=== PATIENT | female | born 1970 | race Caucasian/White ===

== ENCOUNTER 2019-04-25 07:15 | Observation (INO) | payer OTHER ==
[2019-04-22 11:05] LABS: ABSOLUTE BASOPHILS # (AUTO) 0.1 10^3/uL (0.0-0.2); ABSOLUTE EOSINOPHILS # (AUTO) 0.6 10^3/uL (0.0-0.6); ABSOLUTE LYMPHOCYTES (AUTO) 2.5 10^3/uL (0.5-4.7); ABSOLUTE MONOCYTES (AUTO) 0.7 10^3/uL (0.1-1.4); ABSOLUTE NEUT (AUTO) 6.4 10^3/uL (1.7-8.2); BASOPHILS % (AUTO) 0.7 % (0-2); EOSINOPHILS % (AUTO) 5.5 % (0-6); HEMATOCRIT 40.2 % (36.0-47.0); HEMOGLOBIN 13.4 g/dL (12.0-15.5); LYMPHOCYTES % (AUTO) 24.2 % (13-45); MEAN CORPUSCULAR HEMOGLOBIN 29.4 pg (27.0-33.4); MEAN CORPUSCULAR HGB CONC 33.2 g/dL (32.0-36.0); MEAN CORPUSCULAR VOLUME 88 fl (80-97); MONOCYTES % (AUTO) 7.2 % (3-13); PLATELET COUNT 299 10^3/uL (150-450); RED BLOOD COUNT 4.55 10^6/uL (3.72-5.28); RED CELL DISTRIBUTION WIDTH 14.8 % (11.5-14.0); SEGMENTED NEUTROPHILS % (AUTO) 62.4 % (42-78); TOTAL CELLS COUNTED % (AUTO) 100 %; WHITE BLOOD COUNT 10.3 10^3/uL (4.0-10.5)
--- NOTE | 2019-04-22 11:30 | EKG REPORT ---
SEVERITY:- NORMAL ECG - SINUS RHYTHM : Confirmed by: Adebayo Saenz 22-Apr-2019 11:29:42
[2019-04-22 11:39] LABS: ANION GAP 9 (5-19); BLOOD UREA NITROGEN 10 mg/dL (7-20); CALCIUM 9.5 mg/dL (8.4-10.2); CARBON DIOXIDE 29 mmol/L (22-30); CHLORIDE 102 mmol/L (98-107); GLUCOSE 125 mg/dL (75-110); POTASSIUM 5.5 mmol/L (3.6-5.0)
[~2019-04-25 07:15] MED LIST: CLINDAMYCIN 900 MG/D5W RTU 900 MG/50 ML RTUPB IV PRN; LACTATED RINGERS 1000 ML IV PRN; LIDOCAINE 0.5% INJ-PF (5 MG/ML) 50 ML SDV SUBCUT PRN
[2019-04-30] MEDS ORDERED: LIDOCAINE 0.5% INJ-PF (5 MG/ML) 50 ML SDV SUBCUT PRN (05:00)
[2019-04-30] MEDS ORDERED: LACTATED RINGERS 1000 ML IV PRN (05:00)
[2019-04-30] MEDS ORDERED: CLINDAMYCIN 900 MG/D5W RTU 900 MG/50 ML RTUPB IV PRN (05:00)
[2019-04-30] MEDS ORDERED: ROCURONIUM BROMIDE INJ 50 MG/5 ML VIAL IV ONE (08:43)
[2019-04-30] MEDS ORDERED: DEXAMETHASONE SOD PHOSPHATE INJ 4 MG/1 ML VIAL ONE (08:43)
[2019-04-30] MEDS ORDERED: LIDOCAINE 2% INJ-PF (20 MG/ML) 2 ML AMPUL ONE (08:43)
[2019-04-30] MEDS ORDERED: ONDANSETRON HCL INJ/PF 4 MG/2 ML SDV ONE (08:43)
[2019-04-30] MEDS ORDERED: SUCCINYLCHOLINE CHLORIDE INJ 200 MG/10 ML VIAL ONE (08:43)
[2019-04-30] MEDS ORDERED: CLINDAMYCIN 900 MG/D5W RTU 900 MG/50 ML RTUPB IV ONE (12:21)
[2019-04-30] MEDS ORDERED: PROPOFOL INJ 200 MG/20 ML VIAL IV ONE (13:28)
[2019-04-30] MEDS ORDERED: MIDAZOLAM 2 MG/2 ML INJ ONE (13:28)
[2019-04-30] MEDS ORDERED: FENTANYL CITRATE INJ/PF 250 MCG/5 ML AMPULE ONE (13:29)
[2019-04-30] MEDS ORDERED: LIDOCAINE 2%/EPINEPHRINE INJ 1.7 ML CARTRIDGE ONE (13:36)
[2019-04-30] MEDS ORDERED: OXYMETAZOLINE HCL 0.05% NASAL SPRAY 15 ML BOTTLE ONE (13:37)
[2019-04-30] MEDS ORDERED: LIDOCAINE 1%/EPINEPHRINE INJ 20 ML VIAL ONE (13:37)
[2019-04-30] MEDS ORDERED: BUPIVACAINE HCL 0.5%/EPI 1:200000 INJ 1.8 ML CARTRIDGE ONE (13:37)
[2019-04-30] MEDS ORDERED: PROMETHAZINE HCL INJ 25 MG/1 ML VIAL IV PRN ×2 (14:31)
[2019-04-30] MEDS ORDERED: DIPHENHYDRAMINE HCL 50 MG/ML VIAL IV PRN (14:31)
[2019-04-30] MEDS ORDERED: FENTANYL CITRATE INJ/PF 100 MCG/2 ML AMPUL IV PRN ×3 (14:31)
[2019-04-30] MEDS ORDERED: OXYCODONE-ACETAMINOPHEN 5-325 MG TABLET PO PRN ×2 (14:31)
[2019-04-30] MEDS ORDERED: MEPERIDINE HCL/PF INJ 25 MG/1 ML DISP.SYRIN IV PRN (14:31)
[2019-04-30] MEDS ORDERED: HYDROMORPHONE HCL INJ/PF 2 MG/ML AMPULE ONE (14:58)
[2019-04-30] MEDS ORDERED: RINGERS SOLUTION,LACTATED 1,000 ML IV PRN (16:48)
[2019-04-30] MEDS ORDERED: ACETAMINOPHEN 1,000 MG/100 ML RTUPB IV ONE ×2 (16:58→17:15)
[2019-04-30] MEDS ORDERED: ONDANSETRON HCL INJ/PF 4 MG/2 ML SDV IV PRN (17:02)
[2019-04-30] MEDS ORDERED: INFLUENZA QUAD (6MOS+) 2019-20 VAC 0.5 ML SYR IM ONE (17:56)
[2019-04-30] MEDS: DEXAMETHASONE SOD PHOS INJ 10 MG/1 ML VIAL IV SCH (20:16)
[2019-04-30] MEDS: OXYCODONE-ACETAMINOPHEN 5-325 MG TABLET PO PRN (20:17)
[2019-05-01] MEDS: OXYCODONE-ACETAMINOPHEN 5-325 MG TABLET PO PRN ×3 (02:27→13:04)
[2019-05-01] MEDS: DEXAMETHASONE SOD PHOS INJ 10 MG/1 ML VIAL IV SCH ×2 (02:29→09:01)
[2019-05-01 12:56] VITALS: BP 123/71
--- NOTE | 2019-05-14 22:44 | Operative Report ---
Operative Report-[facility] Operative Report: DATE OF OPERATION: April 30, 2019 PREOPERATIVE DIAGNOSIS: 1. Chronic tonsillitis 2. Bilateral tonsillar hypertrophy 3. Bilateral lingual tonsil hypertrophy with concern for possible neoplasm 4. Tonsil stones 5. Obstructive sleep apnea 6. Chronic gagging, foreign body sensation, and episodic uvula swelling POSTOPERATIVE DIAGNOSIS: 1. Chronic tonsillitis 2. Bilateral tonsillar hypertrophy 3. Bilateral lingual tonsil hypertrophy with concern for possible neoplasm 4. Tonsil stones 5. Obstructive sleep apnea 6. Chronic gagging, foreign body sensation, and episodic uvula swelling 7. Intraoperative nasopharyngeal bleeding was identified PROCEDURE: 1. Bilateral tonsillectomy patient age greater than 12 2. Bilateral lingual tonsil/base of tongue biopsies and ablation 3. Uvula shortening/resection 4. Intra-operative nasopharyngeal/adenoid cautery due to intraoperative bleeding Primary Surgeon of Record: Dr. Pramod Elizabeth [employer] RECEIVING CLERK: None Anesthesia Staff: JENN Lewis and JENN Owens ANESTHESIA: General Endotracheal Tube Anesthesia DRAINS: None SPONGE COUNT: Verified Needle Count: N/A SPECIMEN/MATERIALS FORWARD TO THE LAB: 1. Left and Right Tonsillar Tissue 2. Multiple left and right lingual tonsil/base of tongue biopsy specimens ESTIMATED BLOOD LOSS: 10 mL IV FLUIDS: 1100 mL COMPLICATIONS: None Findings: 1. The tonsils were 2-3+, were cryptic in appearance, and significant tonsillar debris was present bilateral. 2. Bilateral lingual tonsil hypertrophy/base of tongue hypertrophy with concern for possible neoplasm. 3. Nasopharyngeal/adenoid area bleeding noted intraoperatively. 2. The soft palatal tissues were redundant in nature and the uvula was excessively elongated in appearance. INDICATIONS: This is a 48 year-old female patient who was seen and evaluated in the [place] [facility] office. The patient had been referred for and she complained about a history of chronic tonsillitis, recurrent tonsil stones, and frequent gagging sensations from her elongated uvula which rested on her base of tongue and foreign body sensation. Patient also with history of obstructive sleep apnea. There had also been preoperative imaging with radiology concern for possible base of tongue/lingual tonsil neoplasm. After extensive discussion with the patient the recommendation and plan was to proceed with a bilateral tonsillectomy, excision/removal of the distal uvula, and left and right lingual tonsil/base of tongue biopsies with ablation. The procedures and all of the risks and complications were all discussed in detail with the patient. She voiced an understanding of the described surgical plan, were in agreement, and consent was obtained. DESCRIPTION OF OPERATIVE PROCEDURE: The patient was taken to the main operating room and was placed on the operating room table in the supine position. Appropriate monitors were placed. Using mask and IV access general anesthesia was induced. The patient was next transorally intubated without difficulty. The table was then rotated 90 and the patient was positioned and prepped for tonsil and adenoid surgery. The lips, teeth, tongue, and gums were inspected and noted to be without defect. The patient had a mouth gag inserted. It was opened and the patient was placed into suspension. There was a soft catheter passed through the nose that was used to suspend the soft palate. Findings are as noted above. At this point Marcaine with epinephrine was administered into the peritonsillar tissues and soft palate region. The plasma J-hook device was used to dissect and remove the tonsils from the tonsillar fossae without difficulty. This was also used to provide adequate hemostasis. Normal saline irrigation was performed and was suctioned and bleeding was noted from the nasopharyngeal region and suction electrocautery was used for adequate hemostasis in this area. Additional saline irrigation was performed with adequate hemostasis being noted. The soft catheter was released and removed from the patients nose. At this point the plasma J-hook device was used to remove the distal portion of the uvula without difficulty. The patient was next released from suspension and the mouth gag was closed. It was opened again and there was again no bleeding noted. It was then removed from the patient's mouth without difficulty. At this point the anesthesia glidescope was inserted and the base of tongue was visualized with multiple biopsies taken from the left and right lingual tonsil/base of tongue areas. Next the Coblation wand was used for adequate hemostasis and tissue ablation. The anesthesia glidescope was removed. There was no damage to the lips, teeth, tongue, or gums noted. The patient was then returned to the anesthesia staff and was allowed to emerge from general anesthesia. The patient was extubated in the operating room and was transported to the post anesthesia recovery unit in stable condition. There were no complications.
== END 2019-05-01 13:53 | disposition home or self-care (01) ==
LOC: OROUT 04-30 11:00 → EDSTATUS 04-30 11:30 → 4S 04-30 16:05 → OROUT 04-30 17:34 → 4S 04-30 17:34 → OROUT 05-01 13:53
PROVIDERS: ADMIT Otolaryngology; ATTEND Otolaryngology
DX: J35.01 Chronic tonsillitis (principal); T78.3XXA Angioneurotic edema, initial encounter; J03.91 Acute recurrent tonsillitis, unspecified; J35.8 Other chronic diseases of tonsils and adenoids; J01.91 Acute recurrent sinusitis, unspecified; J32.9 Chronic sinusitis, unspecified; R09.82 Postnasal drip; J34.3 Hypertrophy of nasal turbinates; J34.2 Deviated nasal septum; G47.33 Obstructive sleep apnea (adult) (pediatric); H69.83 Other specified disorders of Eustachian tube, bilateral; R09.89 Other specified symptoms and signs involving the circulatory and respiratory systems; J95.62 Intraoperative hemorrhage and hematoma of a respiratory system organ or structure complicating other procedure; Y83.8 Other surgical procedures as the cause of abnormal reaction of the patient, or of later complication, without mention of misadventure at the time of the procedure; K21.9 Gastro-esophageal reflux disease without esophagitis; J30.9 Allergic rhinitis, unspecified; R06.83 Snoring; Q38.6 Other congenital malformations of mouth; Q38.3 Other congenital malformations of tongue; R22.1 Localized swelling, mass and lump, neck; M19.90 Unspecified osteoarthritis, unspecified site; I10 Essential (primary) hypertension; K50.90 Crohn's disease, unspecified, without complications; Z23 Encounter for immunization; Z79.899 Other long term (current) drug therapy
CPT/HCPCS: 42826; 41599; 42145; 93005; 36415 ×2; 84132; 85025; 80048; 88304 ×2; 88305 ×2; 90686; 93010; 94762 ×2; 00170; G0378 ×2; G0008; J2250; J3490 ×4; J1100 ×3; J3010; J0330; J2405; J7120; J2704; J0131; 170; 90471; J1170